=== PATIENT | female | born 1945 | race Caucasian/White ===

== ENCOUNTER → 2016-12-28 | Outpatient (CLI) | payer OTHER ==
--- NOTE | 2016-12-28 13:47 | DIAGNOSTIC IMAGING REPORT ---
CHEST 2 VIEWS ROUTINE CLINICAL HISTORY: Persistent cough. COMPARISON STUDY: No previous studies for comparison. FINDINGS: There is mild lung hyperexpansion. No pneumothorax or pleural effusion is identified. There is no evidence of pulmonary edema. Cardiac size is at upper limits of normal. Mediastinal contours are normal. There is no consolidation. IMPRESSION: 1. No acute cardiopulmonary findings. 2. Mild lung hyperexpansion. Electronically signed by: Jaime Geiger M.D. 12/28/2016 1:45 PM Dictated Date/Time: 12/28/2016 1:44 PM
== END | disposition home or self-care (01) ==
LOC: C.RAD 13:14
PROVIDERS: ATTEND Nurse Practitioner Family
DX: R05 Cough (principal)

== ENCOUNTER → 2018-03-13 | Outpatient (CLI) | payer OTHER ==
--- NOTE | 2018-03-13 09:48 | DIAGNOSTIC IMAGING REPORT ---
LEG LENGTH STUDY (WHOLE LEG) CLINICAL HISTORY: Leg length discrepancy. COMPARISON STUDY: Left knee 12/31/2017. FINDINGS: Slight downward tilt to the left of the pelvis. Bilateral varus angulation of the lower extremities. This is due to the severe cartilage space narrowing within the medial compartments of the knees with [id number] articulation. The right lower extremity measured from the superior femoral head to the tibial plafond measures approximately 79.9 cm and the left lower extremity measures 79.4 cm. The discrepancy is likely due due to the asymmetric tibial lengths. The right tibia measures 34.2 cm compared to the left tibia which measures 33.7 cm. IMPRESSION: The right lower extremity measures 79.9 cm and the left lower extremity measures 79.4 cm. This is due to the slight asymmetric tibial lengths as described above. Electronically signed by: Eliceo Fournier M.D. 03/13/2018 9:47 AM Dictated Date/Time: 03/13/2018 9:43 AM
== END | disposition home or self-care (01) ==
LOC: C.RAD 08:38
PROVIDERS: ATTEND Nurse Practitioner
DX: M21.762 Unequal limb length (acquired), left tibia (principal); Z91.048 Other nonmedicinal substance allergy status